=== PATIENT | female | born 1995 | race Caucasian/White ===

== ENCOUNTER 2019-04-26 13:58 | Emergency (ER) | payer MEDICAID, SELFPAY ==
[2019-04-26 14:01] VITALS: BP 132/92; PULSE 104; RESP 18; TEMP 36.4; O2SAT 99; BMI 22.4
--- NOTE | 2019-04-26 14:21 | ED.VIS.GEN ---
History of Present Illness Chief Complaint: Cough Detail of Chief Complaint: Sore throat, cough, wheezing Informant: Patient Onset: Days - 5 days Context: Gradual Onset Current Severity: Mild Maximum Severity: Moderate Narrative: Patient presents with URI symptoms for the past 5 days. She initially developed a sore throat followed by sinus pressure and cough with posttussive emesis. She states she woke last night to wheezing and had to go to her brother's house to use his inhaler. She is bringing up green and brown sputum. Breathing is significantly worse with any exertion. She denies measured fever. She has taken Mucinex today and try drinking peppermint tea to help loosen up her chest congestion. Past Medical History - Allergies and Home Meds Allergies/Adverse Reactions: Allergies latex Allergy (Verified 04/26/19 14:00) Rash Primary Care Physician: NOT,DEFINED [NON-STAFF] - Past Medical History: - - Denies history of asthma. Surgical History: - - x 1, wisdom teeth resection. Smoking Status: Current every day smoker - Family History Maternal Family History: Reports: Hypertension Paternal Family History: Reports: Hypertension, - - Brain aneurysm, age 39 y/o. Review of Systems General: Reports: Sweats. Denies: Chills, Fever Eyes: Denies: Visual changes - bilaterally ENT: Reports: Sore throat. Denies: Bilateral ear pain Cardiovascular: Denies: Chest pain Respiratory: Reports: Dyspnea, Cough, Sputum Gastrointestinal: Reports: Vomiting - Posttussive emesis. Denies: Abdominal pain Genitourinary: Denies: Dysuria Musculoskeletal: Denies: Back pain, Extremity Pain Skin: Denies: Rash Neurological: Denies: Headache Hematologic: Denies: Easy bruising, Easy bleeding Allergy: Denies: Uticaria Physical Exam Vital Signs/Narrative: Vital Signs Temp Pulse Resp BP Pulse Ox 04/26/19 14:01 97.5 F L 104 H 18 132/92 H 99 Inital Vital Signs reviewed: Yes General: Well nourished, Well developed Head: Normocephalic ENT: Moist mucous membranes, - - Posterior pharyngeal drainage. Neck: - - Mild bilateral cervical lymphadenopathy. Cardiovascular: Regular rate, Regular rhythm, No murmurs Respiratory: Wheezing, Diminished, - - Lung sounds slightly diminished with mild expiratory wheeze. Abdomen: Soft, Nontender Extremities: Nontender Skin: Normal color, No rash Neurological: Alert, Oriented x3 Psychological: Normal affect Diagnostic/Tx/Re-eval - Medical Decision Making Patient was given a DuoNeb treatment here along with prednisone and a dose of doxycycline. On repeat evaluation she feels much improved. She has improved air movement throughout. ED Disposition - Plan for ED Patient: Disposition: Home or Assisted Living Diagnosis: Bronchitis Instructions: BRONCHITIS, Antiobiotic Treatment (Adult) Prescriptions: Prednisone [Deltasone] 40 mg PO DAILY #8 tablet Doxycycline 100 mg PO BID #20 capsule Albuterol Inhaler [Ventolin Hfa] 1 - 2 puff INHALATION Q4H PRN PRN #1 inhaler PRN Reason: Wheezing Referrals: Archie Parks Jr. [HONORARY STAFF] - As Needed
[2019-04-26] MEDS: Ipratropium/Albuterol Sulfate 3 ML AMPUL.NEB INHALATION (14:38)
[2019-04-26 14:40] VITALS: RESP 18
[2019-04-26] MEDS: predniSONE 20 MG Tablet 40 MG PO (14:46)
[2019-04-26] MEDS: Doxycycline 100 MG CAPSULE PO (14:46)
== END 2019-04-26 15:43 | disposition home or self-care (01) ==
PROVIDERS: Emergency Provider Emergency Medicine
DX: J40 Bronchitis, not specified as acute or chronic (principal); Z82.49 Family history of ischemic heart disease and other diseases of the circulatory system; Z91.040 Latex allergy status; F17.200 Nicotine dependence, unspecified, uncomplicated
CPT/HCPCS: 94640; 99283

== ENCOUNTER 2019-05-02 17:59 | Emergency (ER) | payer MEDICAID, SELFPAY ==
[2019-05-02 18:00] VITALS: BP 147/93; PULSE 76; RESP 16; TEMP 35.6
[2019-05-02 18:01] VITALS: BP 147/93; PULSE 76; RESP 16; TEMP 35.6; BMI 24.3
[2019-05-02 18:33] LABS: Red Blood Cells-Urine 0 SEEN /hpf (0-5)
[2019-05-02 18:35] LABS: Color, Urine Yellow (Yellow); Glucose, Dipstick Normal (Normal); Ketone-Dipstick Negative (Negative); Leukocyte Esterase-Dipstick 25 /ul (Negative); Nitrite-Dipstick Negative (Negative); Occult Blood-Urine 10 /ul (Negative); Protein-Dipstick Negative (Negative); Specific Gravity, Urine 1.015 (1.002-1.030); Urine Bilirubin Dipstick Negative (Negative); Urine Clarity Sl. Cloudy (Clear); Urine Urobilinogen Normal (Normal)
[2019-05-02 18:35] LABS: Absolute Lymphocyte Count 6.22 X10^3/uL (0.83-4.51); Absolute Neutrophil Count 8.1 X10^3/uL (2.0-7.7); Basophil# 0.07 X10^3/uL; Basophil% 0.4 % (0-1); Eosinophil# 0.33 X10^3/uL; Hematocrit 39.7 % (37-47); Hemoglobin 13.4 g/dL (12.0-15.0); Lymphocyte # 6.22 X10^3/ul (4.0); Lymphocyte % 37.2 % (19-41); Mean Corp Hgb Conc 33.8 g/dL (32-36); Mean Corpuscular Hgb 31.2 pg (27.0-32.0); Mean Corpuscular Volume 92.5 fL (81-99); Mean Platelet Vol. 9.3 fl (6.2-12.0); Monocyte# 1.79 X10^3/uL; Monocyte% 10.7 % (0-10); NRBC Flagged by Analyzer 0 % (0-5); Neutrophil # 8.05 X10^3/uL (2.7-7.7); Neutrophil % 48.3 % (47-70); POSITIVE DIFFERENTIAL YES; Platelet Count 341 K/mm3 (150-450); RBC Distribution Width CV 12.5 % (11.6-14.6); RBC Distribution Width SD 42.1 fl (35.1-43.9); Red Blood Count 4.29 M/mm3 (4.2-5.4); White Blood Count 16.7 K/mm3 (4.4-11.0)
[2019-05-02 18:45] LABS: Differential Indicated SCAN CRITERIA MET
[2019-05-02 18:48] LABS: Anion Gap 5 (5-15); BUN 11 mg/dL (7-18); BUN/Creat Ratio 15.2 RATIO (10-20); Calcium,Total 9.1 mg/dL (8.5-10.1); Chloride 104 mmol/L (98-107); Creatinine, Serum 0.73 mg/dL (0.55-1.02); EST Glomerular Filtration Rate 105 mL/min (>60); Est Glom Filt Rate - Afr Amer 128 mL/min (>60); Glucose 80 mg/dL (74-106); Potassium 3.6 mmol/L (3.5-5.1); Sodium Level 141 mmol/L (136-145)
[2019-05-02 18:49] LABS: Internal QC Validated? YES +Cl - CLEAR BKGD; Pregnancy, Serum, hCG Quali. NEGATIVE Negative
[2019-05-02 18:59] LABS: Bacteria 2+ /hpf (None Seen); Squamous Epithelial Cells - UA 5-10 SEEN /hpf (5-10); White Blood Cells 0-5 SEEN /hpf (0-5)
[2019-05-02 19:00] LABS: Amorphous Sediment 1+; Mucous, Urine 1+ /hpf (<or=2+)
--- NOTE | 2019-05-02 19:06 | ED.DCSUM_ITS ---
- ER Visit Summary Date of Service: 05/02/19 Chief Complaint: Right upper quadrant abdominal pain History of Present Illness: The patient is a 24 F who presents with right upper quadrant abdominal pain that began yesterday. Patient describes the pain as sharp and stabbing. Patient states the pain has been constant. Patient states the pain is worse with ambulation. Patient admits to nausea but denies any vomiting. Patient denies any diarrhea, melena, or hematochezia. Patient denies any dysuria or hematuria. Patient states her last menstrual period was 04/13/2019. Patient states the pain does radiate into her back. Patient states she does have pain between her shoulder blades. 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 Physical Examination: Vital signs are stable. Patient is afebrile. Patient is in no acute distress. Oral mucosa is pink and moist. Neck is supple. Trachea is midline. There is no JVD. Heart was regular rate and rhythm. Lungs are clear and equal bilaterally. Abdomen is soft. Bowel sounds are normal. There is right upper quadrant tenderness. There is a positive Ly sign. There is no rebound or guarding noted. Cranial nerves II through XII are intact. There are no focal motor or sensory deficits noted. Test Results: CBC showed leukocytosis of 16.7. Comprehensive metabolic profile was essentially within normal limits. Urinalysis does not show any evidence of urinary tract infection. CT scan of the abdomen and pelvis was obtained. There is some gallbladder wall edema as well as edema around the pancreas. There are no gallstones noted. There is questionable ductal dilatation of the cystic duct. Emergency Department Course and Treatment: Patient was given IV fluids, Zofran, and Toradol. Patient is feeling better on reevaluation. Case was discussed with Dr. Mitchell. Patient will be able to follow-up as an outpatient. Patient understood and was agreeable with the plan. All questions were answered. Disposition: Discharge home Impression: Right upper quadrant abdominal pain This note was generated with [employer] dictation software. It may contain incorrect words, spelling, and punctuation that were not noted in review of the chart prior to signing ED Disposition - Plan for ED Patient: Disposition: Home or Assisted Living Diagnosis: Right upper quadrant abdominal pain Instructions: ABDOMINAL PAIN, Unknown Cause, (Female) Referrals: Care Physician,No Primary [Primary Care Provider] - Chidi Mitchell MD [STAFF PHYSICIAN] - 3-5 Days
[2019-05-02 19:13] LABS: Differential Comment SCANNED
[2019-05-02 19:20] LABS: ALB/GLOB Ratio 1.1 RATIO (0.9-2.4); AST(SGOT) 39 U/L (15-37); Alanine Aminotransfer ALT/SGPT 57 U/L (13-56); Albumin, Serum 3.5 g/dL (3.2-5.0); Alkaline Phosphatase 70 U/L (45-117); Anion Gap 7 (5-15); BUN 11 mg/dL (7-18); BUN/Creat Ratio 14.5 RATIO (10-20); Chloride 104 mmol/L (98-107); Creatinine, Serum 0.76 mg/dL (0.55-1.02); EST Glomerular Filtration Rate 100 mL/min (>60); Est Glom Filt Rate - Afr Amer 121 mL/min (>60); Estimated Creatinine Clearance 107.77 ml/min; Globulin 3.2 g/dL (2.2-4.2); Glucose 79 mg/dL (74-106); Lipase 266 U/L (73-393); Potassium 3.6 mmol/L (3.5-5.1); Protein, Total 6.7 g/dL (6.4-8.2); Sodium Level 142 mmol/L (136-145)
--- NOTE | 2019-05-02 19:36 | ED.RN ---
while starting fluids via IV, pt started screaming and moaning saying, get it out it hurts. I used to do dope and i know this isn't right. PT requesting oral meds. aware.
--- NOTE | 2019-05-02 19:48 | CT_ITS ---
STUDY: CT ABDOMEN AND PELVIS WITHOUT CONTRAST REASON FOR EXAM: Female, 24 years old. Right upper quadrant pain nausea elevated white cells RADIATION DOSAGE (If Supplied By Facility): CTDIvol = ( 6.28 ) mGy, DLP = ( 298.00 ) mGycm TECHNIQUE: Transaxial images were obtained from the dome of the diaphragm to the symphysis pubis without oral contrast, and without intravenous contrast. Sagittal and coronal images were reconstructed. Individualized dose optimization techniques were used for this CT. COMPARISON: None. FINDINGS: Examination is moderately technically limited due to suboptimal technique and lack of IV contrast. Diagnostic information is available. The visualized lung bases are unremarkable. The visualized portions of the heart are within normal limits. The liver is intact. There is possibly periportal edema with widening of the portal triads. There is severe gallbladder wall edema. Detection of biliary dilation is not possible. There is edema surrounding the root of the mesentery and pancreas and upper retroperitoneum. Distal tail and body of the pancreas are normal. There is questionable ductal dilation in the pancreatic head, versus cystic duct. Normal bilateral adrenal glands. Normal right kidney. Normal left kidney. Normal visualized stomach. Normal small intestine. Normal colon. The appendix is visualized and appears normal. Normal abdominal aorta. Normal inferior vena cava. Normal retroperitoneum. Normal urinary bladder. Normal abdominal wall. Normal osseous structures. CT/Abdomen/Pelvis without Cont IMPRESSION: 1. Limited evaluation. 2. Presumed cholecystitis. 3. Periportal edema, peripancreatic edema, possibly pancreatitis versus duodenitis versus cholangitis. Electronically Signed: Karen Asif, at 20:10 EST Tel , Service support ,
[2019-05-02] MEDS: Naproxen 250 MG Tablet 500 MG PO (20:01)
[2019-05-02] MEDS: Ondansetron ODT 4 MG Tablet PO (20:01)
[2019-05-02 20:04] VITALS: BP 116/90; PULSE 60; RESP 16; O2SAT 98
[2019-05-02 22:16] VITALS: BP 126/84; PULSE 69; RESP 14; O2SAT 98
[2019-05-03 14:14] LABS: Pathologist Review Reviewed
== END 2019-05-02 22:17 | disposition home or self-care (01) ==
PROVIDERS: Emergency Provider Emergency Medicine
DX: R10.11 Right upper quadrant pain (principal); M54.9 Dorsalgia, unspecified; R11.0 Nausea; R05 Cough; F17.210 Nicotine dependence, cigarettes, uncomplicated; Z86.19 Personal history of other infectious and parasitic diseases
CPT/HCPCS: 74176; 80048; 80053; 81001; 83690; 84703; 85025; 96361; 96374; 96375; 99284; J7030; A4216; J2405

== ENCOUNTER 2020-06-04 20:50 | Emergency (ER) | payer MEDICAID, SELFPAY ==
[2020-06-04 20:51] VITALS: BP 146/84; PULSE 77; RESP 18; TEMP 36.4; O2SAT 95; BMI 22.4
[2020-06-04] MEDS: Albuterol 2.5 MG/3 ML VIAL.NEB. INHALATION (21:20)
[2020-06-04 21:22] VITALS: PULSE 73; RESP 16
--- NOTE | 2020-06-04 21:35 | RAD_ITS ---
STUDY: X-RAY CHEST REASON FOR EXAM: Female, 25 years old. SOB and amp; COUGH. REPORTS ALLERGY TO CATS. WENT TO VISIT HER MOM WHO HAS CATS IN HER HOME. PT REPORTS AFTERWARDS SHE FELT SOB WITH WHEEZING. TECHNIQUE: Single AP portable view of the chest. COMPARISON: 10/02/2016 FINDINGS: Left perihilar airspace process is new since the prior study. There is no demonstrated pleural abnormality. Normal size heart. Normal mediastinum and marguerite. Normal visualized pulmonary arteries. Normal visualized aortic arch and descending thoracic aorta. Normal visualized thoracic spine. Normal visualized ribs, clavicles, and shoulders. There is no demonstrated abnormality of the visualized soft tissue structures of the upper abdomen. RAD/Chest 1 View (Portable) IMPRESSION: Left perihilar bronchopneumonia. Electronically Signed: Leonid Lyn MD (Brooks) at 21:52 EST , Service support ,
--- NOTE | 2020-06-04 22:00 | ED.VISSUMM ---
- ER Visit Summary Date of Service: 06/04/20 Chief Complaint: Shortness of breath History of Present Illness: The patient is a 25 F with no primary care physician. She reports that she has had a cough for the past week is productive of brown sputum without blood. States that she went to her mom's house tonight and she is allergic to cats. When she got there she began coughing hard and became short of breath. She denies any fever or chills. 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 She does wear a mask. Physical Examination: Vitals: Stable. Afebrile. General: Well-nourished and well-developed. Head: Normocephalic atraumatic. Neck: Supple, no lymphadenopathy. No JVD. Nontender. Cardiovascular: Regular rate and rhythm. No murmurs. Respiratory: No respiratory distress. Mild wheezing bilaterally with good air movement. Abdominal: Soft, nontender, nondistended, normal bowel sounds. No guarding, rebound, or peritoneal signs. Back: Nontender. Extremities: Nontender, no edema. Skin: Normal color, no rash. Neurologic: Alert and oriented ?3. Cranial nerves II through XII are intact. Normal strength and sensation. Psych: Normal affect. Test Results: COVID-19 rapid antigen is negative. Clinical Impression(s) from Imaging Studies Chest X-Ray 06/04/20 21:35 IMPRESSION: Left perihilar bronchopneumonia. Electronically Signed: Leonid Lyn MD ([place]oks) at 21:52 EST , Service support , Emergency Department Course and Treatment: Patient was treated albuterol Atrovent aerosols. She was given doxycycline and prednisone p.o. Treatment Plan: Patient will be discharged instructions [facility] if not improving. Return to the emergency department for any worsening symptoms. Disposition: To home in improved and stable condition. Impression: 1. Pneumonia. This note was generated with [employer] software. It may contain incorrect words, spelling, and punctuation that were not noted in review of the chart prior to signing ED Disposition - Plan for ED Patient: Disposition: Home or Assisted Living Instructions: ED Pneumonia (Adult) Prescriptions: Prednisone [Deltasone] 40 mg PO DAILY #10 tab Prescription Printed Doxycycline 100 mg PO BID #14 cap Prescription Printed Albuterol Inhaler [Ventolin Hfa] 1 - 2 puff INHALATION Q4H PRN PRN #1 inhaler PRN Reason: Wheezing Prescription Printed Referrals: Claire Kam [NON-STAFF] - 1 Week if not improving
[2020-06-04] MEDS: Doxycycline 100 MG CAPSULE PO (22:08)
[2020-06-04] MEDS: predniSONE 20 MG Tablet 40 MG PO (22:08)
[2020-06-04 22:15] VITALS: RESP 16
== END 2020-06-04 22:15 | disposition home or self-care (01) ==
LOC: ED 21:54
PROVIDERS: Emergency Provider Emergency Medicine
DX: J18.0 Bronchopneumonia, unspecified organism (principal)
CPT/HCPCS: 71045; 87426; 94640; 99283

== ENCOUNTER 2021-03-06 09:35 | Inpatient (IN) | payer MEDICAID, SELFPAY ==
[2021-03-06] VITALS (22 sets, daily range): BP systolic 107–131; BP diastolic 37–69; PULSE 44–81; RESP 16–20; TEMP 36.1–36.7; O2SAT 96–100; BMI 26.3
[2021-03-06] MEDS: Lactated Ringers 1,000 ML 999 ML IV (10:20)
[2021-03-06] MEDS: Acetaminophen 500 MG Tablet 1000 MG PO ×3 (10:38→23:23)
[2021-03-06 10:40] LABS: Absolute Lymphocyte Count 1.83 X10^3/uL (0.83-4.51); Absolute Neutrophil Count 7.3 X10^3/uL (2.0-7.7); Basophil# 0.02 X10^3/uL; Basophil% 0.2 % (0-1); Eosinophil# 0.13 X10^3/uL; Eosinophils% 1.3 % (0-5); Hemoglobin 11.5 g/dL (12.0-15.0); Lymphocyte # 1.83 X10^3/ul (0.83-4.51); Lymphocyte % 17.7 % (19-41); Mean Corp Hgb Conc 33.8 g/dL (32-36); Mean Corpuscular Hgb 29.5 pg (27.0-32.0); Mean Corpuscular Volume 87.2 fL (81-99); Mean Platelet Vol. 10.7 fl (6.2-12.0); Monocyte# 1.04 X10^3/uL; Monocyte% 10.1 % (0-10); NRBC Flagged by Analyzer 0 % (0-5); Neutrophil # 7.27 X10^3/uL (2.7-7.7); Neutrophil % 70.5 % (47-70); Platelet Count 277 K/mm3 (150-450); RBC Distribution Width CV 13.5 % (11.6-14.6); RBC Distribution Width SD 42.4 fl (35.1-43.9); White Blood Count 10.3 K/mm3 (4.4-11.0)
[2021-03-06 10:59] LABS: Amphetamine Urine VISTA NEGATIVE (<1000 ng/mL); Barbiturate Urine VISTA NEGATIVE (< 200 ng/mL); Benzodiazepine Urine VISTA NEGATIVE (< 200 ng/mL); Cocaine Urine VISTA NEGATIVE (< 300 ng/mL); Ecstacy Urine VISTA NEGATIVE (< 500 ng/mL); Methadone Urine VISTA NEGATIVE (< 300 ng/mL); PCP Urine VISTA NEGATIVE (< 25 ng/mL); THC Urine VISTA POSITIVE (< 50 ng/mL); Vista UDS pH Range 6
[2021-03-06] MEDS: Lactated Ringers 1,000 ML 150 ML IV (11:21)
[2021-03-06 11:44] LABS: AST(SGOT) 50 U/L (15-37); Alanine Aminotransfer ALT/SGPT 51 U/L (13-56); Albumin, Serum 2.5 g/dL (3.2-5.0); Alkaline Phosphatase 231 U/L (45-117); Bilirubin, Direct 0.14 mg/dL (0.00-0.30); Globulin 4.2 g/dL (2.2-4.2); Protein, Total 6.7 g/dL (6.4-8.2)
[2021-03-06] MEDS: Sodium Citrate/Citric Acid 30 ML UDC PO (11:45)
[2021-03-06] MEDS: Cefazolin 2 GM in 0.9% Normal Saline 100 ML IV (11:50)
--- NOTE | 2021-03-06 11:59 | PCM.HP.OB ---
HPI - General General Date of Admission: 03/06/21 HPI Narrative KARINA ARANDA, is a 26 F who presents for repeat . Maternal Data Information Final AROLDO: [birth year] Gestational age: 39&2 PFSH PFSH Medical History Depression Hepatitis Psychiatric disorder Home Medications albuterol sulfate 1 - 2 puff INHALATION Q4H PRN PRN #1 inhaler 06/04/20 [Rx Last Taken 6 Months Ago ~09/03/20] PNV no.[id number] [ Gummies] tab PO DAILY 03/06/21 [History Last Taken 03/05/21 20:00] buprenorphine HCl [Subutex] 8 mg SUBLINGUAL DAILY 03/06/21 [History Last Taken 03/06/21 08:30] docusate sodium [Colace] 50 mg PO DAILY 03/06/21 [History Last Taken 03/06/21 10:27] doxylamine succinate [Unisom (doxylamine)] 25 mg PO QHS PRN 03/06/21 [History Last Taken 03/05/21 20:00] ondansetron HCl [Zofran] 4 mg PO Q6H PRN 03/06/21 [History Last Taken 03/06/21 08:00] pyridoxine (vitamin B6) [Vitamin B-6] 25 mg PO DAILY 03/06/21 [History Last Taken 03/05/21 20:00] Allergy/AdvReac Type Severity Reaction Status Date / Time latex Allergy Rash Verified 03/06/21 10:17 Surgical History (Updated 03/06/21 @ 12:[address] Jes Varela MD) History of gynecologic surgery Previous section Social History Smoking Status: Former smoker History Elective abortions Hx Para 1 Spontaneous abortions Hx # Term Pregnancies Ectopic pregnancies Hx # Pregnancies Multiple births # of living children Vital Signs Vital Signs Vital Signs: 03/06/21 11:00 03/06/21 11:06 Temperature 96.9 F L 96.9 F L Temperature Source Temporal Temporal Pulse Rate 81 81 Respiratory Rate 20 H Blood Pressure 126/52 H 126/52 H Blood Pressure Mean 76 BP Systolic 126 BP Diastolic 52 Blood Pressure Source Monitor Blood Pressure Position Semi-Fowlers Blood Pressure Location Right Arm Pulse Ox 98 98 Oxygen Delivery Method Room Air Weight Weight: 170 lb 6.677 oz Body Mass Index (BMI) 26.3 Physical Exam Const alert and oriented x3 Chest inspection of chest normal Resp normal respiratory effort GI soft to palpation, non-tender and non-distended Inspection: gravid external exam normal Labs Labs Labs: Blood Type A POSITIVE Antibody Screen NEGATIVE Hct 34.0 % (37-47) L Hgb 11.5 g/dL (12.0-15.0) L Obstetrics US Rhogam given: No See [facility] H&P Assessment & Plan (1) Previous delivery, antepartum: COMMENT: @ 39&2 weeks PLAN: Admit to L&D Plan for repeat - informed consent signed COVID negative Maternal subutex use - plan for PP social work consult Routine care
[2021-03-06 12:28] LABS: BUP Internal Control LINE = VALID (VALID); Buprenorphine Drug Screen Positive (<10 ng/mL)
--- NOTE | 2021-03-06 13:02 | EX.PCM.OBRPT ---
Maternal Data Information Final AROLDO: [birth year]21 Gestational age: 39&2 Details Operative Information Date of Procedure: 03/06/21 Pre-Operative Diagnosis: (1) Prior section (2) Maternal subutex use Post-Operative Diagnosis: Same Indications for : Repeat Elective Indications Narrative: The patient was taken to the operating room where spinal anesthesia was placed & found to be adequate. She was prepped and draped in the dorsal supine position with a leftward tilt. A Pfannenstiel skin incision was made approximately 2 cm above the symphysis pubis and carried through to the underlying fascia with the scalpel. The fascia was incised incised in the midline and extended laterally with the [place] scissors. The rectus muscles were in the midline and the peritoneum was entered carefully and bluntly. The peritoneal incision was stretched and the bladder blade was inserted. Vesicouterine peritoneum was tented up, incised & then bladder flap created gently. The uterine incision was made in a low transverse fashion with the scalpel and extended superiorly and inferiorly with blunt dissection. The infant's head was brought to the incision in the flexed position and delivered without difficulty. The head was gently guided to allow delivery of the anterior and posterior shoulders. The body then delivered with fundal pressure in the standard fashion. The 3VC cord was clamped and cut in delayed fashion. The infant was handed off to the waiting pediatric physical therapist. The placenta was delivered with fundal massage and gentle traction in the standard fashion. The uterus was exteriorized and cleared of clots and debris. The uterine incision was closed with #1 Vicryl suture in a running locked fashion. Monocryl suture was used in an imbricating fashion. The incision was examined and was found to be hemostatic. The uterus was returned to the abdominal cavity. After irrigating Richa was placed over the uterine incision as some areas were denuded (but hemostatic). The peritoneum was unable to be closed as their was some adhesions of the omentum to the peritoneum. The rectus muscle was examined and any bleeding was Bovie cauterized. The fascia was closed with PDS suture in a running standard fashion. The subcutaneous tissue was examining and any bleeding was Bovie cauterized. The subcutaneous tissue was reapproximated with interrupted sutures. The skin was closed in a subcuticular fashion by the MUMPS DEVELOPER while I was present in the labor & delivery unit. The remainder of the procedure was performed by me with assistance. All sponge, lap, and needle counts were correct. The patient was taken to her room for recovery in a stable condition. Classification: Scheduled Procedure Type: low transverse recovery specialist #1: Lauren Spaulding Type of Anesthesia: Spinal Antibiotic Given: Ancef 2 grams IV x1 Drain: Mendoza to straight drain Estimated Blood Loss: 750ml Fluids Replaced: 1100ml Procedure Start Time: 12:15 Procedure Stop Time: 12:50 Findings Description of Procedure: Normal maternal uterus and ovaries Presentation: Positive for Vertex Amniotic Membrane Rupture Type: Artificial Amniotic Fluid Description: Clear Placental Delivery Description: Expressed Placenta Disposition: [facility] Cord Vessel Description: 3 Vessels Cord Entanglement: None A Gender: Male (Joesph - weight = 8-3) (1 minute): 9 (5 minute): 9 Delayed Cord Clamping: Yes Complications Complications: None
[2021-03-06] MEDS: Oxytocin 30 units/NS 500 ml 30 UNITS/500 ML IV.SOLN 167 UNITS IV (13:10)
[2021-03-06] MEDS: Ketorolac 30 MG/ML Syringe IV ×2 (13:20→19:40)
[2021-03-06] MEDS: Ondansetron 4 MG/2 ML Vial IV (14:14)
[2021-03-06] MEDS: 0.9% Saline Lock 10 ML Syringe IV ×3 (14:14→19:40)
[2021-03-06] MEDS: Lactated Ringers 1,000 ML 100 ML IV (17:31)
[2021-03-07] VITALS (9 sets, daily range): BP systolic 94–121; BP diastolic 54–83; PULSE 55–75; RESP 16–18; TEMP 36–36.9; O2SAT 96–100
[2021-03-07] MEDS: Ketorolac 30 MG/ML Syringe IV ×2 (01:50→08:06)
[2021-03-07] MEDS: 0.9% Saline Lock 10 ML Syringe IV ×2 (01:51→08:09)
[2021-03-07] MEDS: Enoxaparin 40 MG/0.4 ML Syringe SC (02:13)
[2021-03-07] MEDS: Acetaminophen 500 MG Tablet 1000 MG PO ×3 (05:45→18:21)
[2021-03-07 05:57] LABS: Hematocrit 31.4 % (37-47); Hemoglobin 10.4 g/dL (12.0-15.0); Mean Corp Hgb Conc 33.1 g/dL (32-36); Mean Corpuscular Hgb 29.5 pg (27.0-32.0); Mean Corpuscular Volume 89.2 fL (81-99); Mean Platelet Vol. 10.8 fl (6.2-12.0); Platelet Count 245 K/mm3 (150-450); RBC Distribution Width CV 13.4 % (11.6-14.6); RBC Distribution Width SD 43.8 fl (35.1-43.9); Red Blood Count 3.52 M/mm3 (4.2-5.4); White Blood Count 12.8 K/mm3 (4.4-11.0)
--- NOTE | 2021-03-07 08:47 | PCM.PN.OB ---
Subjective Subjective Pain well controlled. Average lochia. Ambulating and urinating without difficulty. Tolerating regular diet. Objective Data Objective Data Vital Signs: Vital Signs Temp Pulse Resp BP Pulse Ox 98.4 F 68 16 101/60 98 03/07/21 08:21 03/07/21 08:21 03/07/21 08:21 03/07/21 08:21 03/07/21 08:21 Oxygen Delivery Method Room Air Weight: 77.3 kg Body Mass Index (BMI) 26.3 Intake & Output: Intake and Output for Last 24 Hours 03/05/21 03/06/21 03/07/21 23:59 23:59 23:59 Intake Total 3060 / 3060 Output Total 1250 / 1250 Balance 1810 / 1810 Lab / Micro Data Result Diagrams: 03/07/21 05:50 Labs: Laboratory Results - last 24 hr 03/06/21 10:20: WBC 10.3, RBC 3.90 L, Hgb 11.5 L, Hct 34.0 L, MCV 87.2, MCH 29.5, MCHC 33.8, RDW Std Deviation 42.4, RDW Coeff of Julio 13.5, Plt Count 277, MPV 10.7, Immature Gran % (Auto) 0.200, Neut % (Auto) 70.5 H, Lymph % (Auto) 17.7 L, [place] % (Auto) 10.1 H, Eos % (Auto) 1.3, Baso % (Auto) 0.2, Absolute Neuts (auto) 7.3, Absolute Lymphs (auto) 1.83, Nucleated RBC % 0 03/06/21 10:20: Blood Type A POSITIVE, Antibody Screen NEGATIVE 03/06/21 10:20: Total Bilirubin 0.40, Direct Bilirubin 0.14, AST 50 H, ALT 51, Alkaline Phosphatase 231 H, Total Protein 6.7, Albumin 2.5 L, Globulin 4.2 03/06/21 10:20: Urine Opiates Screen NEGATIVE, Urine Methadone Screen NEGATIVE, Ur Barbiturates Screen NEGATIVE, Ur Phencyclidine Scrn NEGATIVE, Ur Amphetamines Screen NEGATIVE, U Methamphetamin-MDMA NEGATIVE, U Benzodiazepines Scrn NEGATIVE, Urine Cocaine Screen NEGATIVE, U Cannabinoids Screen POSITIVE H, Ur Drug Screen Comment 03/06/21 10:30: Ur Buprenorphine Scrn Positive H, Ur Drug Screen Comment 03/07/21 05:50: WBC 12.8 H, RBC 3.52 L, Hgb 10.4 L, Hct 31.4 L, MCV 89.2, MCH 29.5, MCHC 33.1, RDW Std Deviation 43.8, RDW Coeff of Julio 13.4, Plt Count 245, MPV 10.8 Physical Exam Const alert General Appearance: cooperative GI GI Narrative: soft, moderate distention, fundus firm, appropriately tender. Abdominal bandage clean dry and intact Assessment & Plan (1) delivery delivered: PLAN: Postoperative day #1 status post repeat section. Patient and are doing well. Patient is working on breast-feeding. Mild postoperative blood loss anemia is appropriate for blood loss during surgery. Continue routine postop care. Likely discharge home tomorrow.
[2021-03-07] MEDS: Senna/Docusate Sodium 1 Tablet PO (10:07)
[2021-03-07] MEDS: BUPRENORPHINE HCL 8 MG TAB.SUBL SL (10:08)
[2021-03-07] MEDS: Ibuprofen 600 MG Tablet PO ×2 (13:43→20:18)
[2021-03-08] MEDS: Acetaminophen 500 MG Tablet 1000 MG PO ×4 (00:16→18:23)
[2021-03-08 02:02] VITALS: BP 123/43; PULSE 62; RESP 18; TEMP 36.1
[2021-03-08] MEDS: Ibuprofen 600 MG Tablet PO ×4 (02:05→20:21)
[2021-03-08] MEDS: Buprenorphine HCl 2 MG TAB.SUBL SL ×2 (06:04→15:58)
[2021-03-08 08:00] VITALS: BP 124/77; PULSE 60; RESP 16; TEMP 36.9
--- NOTE | 2021-03-08 09:01 | PCM.PN.OB ---
Subjective Subjective Pain much better controlled with buprenorphine for breakthrough pain. Tolerating regular diet. Complaining of some mid back pain. Objective Data Objective Data Her back was inspected and palpated. No erythema, lumps, or point tenderness. Vital Signs: Vital Signs Temp Pulse Resp BP Pulse Ox 98.5 F 60 16 124/77 H 96 03/08/21 08:00 03/08/21 08:00 03/08/21 08:00 03/08/21 08:00 03/07/21 16:43 Oxygen Delivery Method Room Air Weight: 77.3 kg Body Mass Index (BMI) 26.3 Intake & Output: Intake and Output for Last 24 Hours 03/06/21 03/07/21 03/08/21 23:59 23:59 23:59 Intake Total 3060 / 3060 Output Total 1250 / 1250 Balance 1810 / 1810 Lab / Micro Data Result Diagrams: 03/07/21 05:50 Physical Exam Const alert General Appearance: cooperative GI GI Narrative: soft, mildly distended, less than yesterday, fundus firm, appropriately tender. Abdominal bandage clean dry and intact Assessment & Plan (1) delivery delivered: PLAN: Postoperative day #2 status post repeat section. Patient is doing well. Using buprenorphine maintenance dose with buprenorphine 2 mg every 8 hours as needed breakthrough pain. Pain is improved with this. is breast-feeding. Had some abstinence syndrome symptoms last night. Patient will not be discharged today as will not be discharged. Continue to monitor for now. Routine care. Patient understands and agrees with plan.
[2021-03-08] MEDS: BUPRENORPHINE HCL 8 MG TAB.SUBL SL (09:56)
[2021-03-08] MEDS: Senna/Docusate Sodium 1 Tablet PO (09:56)
[2021-03-08] MEDS: Enoxaparin 40 MG/0.4 ML Syringe SC (09:56)
[2021-03-08 13:17] VITALS: BP 115/66; PULSE 57; RESP 16; TEMP 36.2
[2021-03-08 20:05] VITALS: BP 129/91; PULSE 57; RESP 18; TEMP 36.1
[2021-03-09] MEDS: Acetaminophen 500 MG Tablet 1000 MG PO ×4 (00:14→19:27)
[2021-03-09] MEDS: Ibuprofen 600 MG Tablet PO ×4 (02:52→20:20)
[2021-03-09 02:53] VITALS: BP 127/57; PULSE 59; RESP 18
[2021-03-09] MEDS: Enoxaparin 40 MG/0.4 ML Syringe SC (07:45)
[2021-03-09] MEDS: Senna/Docusate Sodium 1 Tablet PO (07:46)
[2021-03-09 07:50] VITALS: BP 109/68; PULSE 58; RESP 14; TEMP 36; O2SAT 97
[2021-03-09] MEDS: BUPRENORPHINE HCL 8 MG TAB.SUBL SL (10:29)
[2021-03-09 13:58] VITALS: BP 132/79; PULSE 62; RESP 14; TEMP 36.3; O2SAT 97
--- NOTE | 2021-03-09 17:31 | PCM.PN.OB ---
Subjective Subjective Pt doing well. Pain well controlled. Ambulating voiding without difficulty. Tolerating regular diet without nausea or vomiting. Denies chest pain, shortness of breath, leg pain. Lochia normal. Denies chest pain, shortness of breath, leg pain. Objective Data Objective Data Vital Signs: Vital Signs Temp Pulse Resp BP Pulse Ox 97.4 F L 62 14 132/79 H 97 03/09/21 13:58 03/09/21 13:58 03/09/21 13:58 03/09/21 13:58 03/09/21 13:58 Oxygen Delivery Method Room Air Weight: 170 lb 6.677 oz Body Mass Index (BMI) 26.3 Lab / Micro Data Result Diagrams: 03/07/21 05:50 Physical Exam Const alert and no apparent distress General Appearance: comfortable HEENT normocephalic GI soft to palpation, non-tender and non-distended GI Narrative: dressing c/d/i Extremity no calf tenderness Assessment & Plan (1) delivery delivered: PLAN: Routine post op care. VSS. Pain well controlled. SW to see. Dispo: Discharge tomorrow. (2) Heroin abuse: (3) Tobacco use: (4) Depression: QUALIFIERS: Depression Type: unspecified Qualified Code(s): F32.9 - Major depressive disorder, single episode, unspecified (5) Cocaine abuse: (6) Methamphetamine abuse:
[2021-03-09] MEDS: Buprenorphine HCl 2 MG TAB.SUBL SL (19:54)
[2021-03-09 20:18] VITALS: BP 138/81; PULSE 65; RESP 18; TEMP 36.6
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
[2021-03-10] MEDS: Acetaminophen 500 MG Tablet 1000 MG PO ×3 (00:18→13:21)
[2021-03-10] MEDS: Bisacodyl 10 MG Suppository RC (00:34)
[2021-03-10 02:21] VITALS: BP 119/69; PULSE 55; RESP 16; TEMP 36.7
[2021-03-10] MEDS: Ibuprofen 600 MG Tablet PO ×3 (02:23→15:10)
[2021-03-10 08:06] VITALS: BP 118/53; PULSE 62; RESP 16; TEMP 36.9
[2021-03-10] MEDS: Enoxaparin 40 MG/0.4 ML Syringe SC (10:07)
[2021-03-10] MEDS: Senna/Docusate Sodium 1 Tablet PO (10:07)
[2021-03-10] MEDS: BUPRENORPHINE HCL 8 MG TAB.SUBL SL (10:07)
--- NOTE | 2021-03-10 11:22 | PCM.PN.OB ---
Subjective Subjective Patient doing well. Reports no bowel movement and discomfort from this. She is passing gas. She is tolerating regular diet without nausea or vomiting. Ambulating voiding without difficulty. She denies chest pain, shortness of breath, leg pain. Her pain is well controlled. Objective Data Objective Data Vital Signs: Vital Signs Temp Pulse Resp BP Pulse Ox 98.4 F 62 16 118/53 L 97 03/10/21 08:06 03/10/21 08:06 03/10/21 08:06 03/10/21 08:06 03/09/21 13:58 Oxygen Delivery Method Room Air Weight: 170 lb 6.677 oz Body Mass Index (BMI) 26.3 Lab / Micro Data Result Diagrams: 03/07/21 05:50 Physical Exam Const alert General Appearance: comfortable GI soft to palpation GI Narrative: softly distended, ATTP Extremity no calf tenderness Assessment & Plan (1) delivery delivered: PLAN: Meeting milestones to go home. Discharge instructions reviewed. To hotel status today. (2) Heroin abuse: (3) Tobacco use: (4) Depression: QUALIFIERS: Depression Type: unspecified Qualified Code(s): F32.9 - Major depressive disorder, single episode, unspecified (5) Cocaine abuse: (6) Methamphetamine abuse:
--- NOTE | 2021-03-10 11:29 | PCM.DC ---
Discharge Instructions Diet Discharge Diet: No restrictions Activity Discharge Activity: May Shower May resume sexual activity in: 6 weeks Ice area for (Minutes): 15 Weight Bearing Status: Weight bearing as tolerated Lifting Restrictions: nothing heavier than baby Dressing / Incision Call your doctor if your incision/area has: Sudden Increased Bleeding, Increased Pain/ Swelling, Increased Redness, Foul Smelling Discharge and Swelling at the incision site Call your doctor if you observe: Fever of 101 or Higher, Change in Color, Inability to urinate, Inability to have a bowel movement, Using more than 1 pad per hour, Shortness of breath, Dizziness, Fainting spells, Swelling in the ankles, Chest pain, Increased palpitations (irregular heartbeat), Calf discomfort and Uncontrolled pain Suture Line Care: Avoid Pulling/Pushing and Avoid Pinching/Bending Remove Dressing in: 1 week Cleanse incision/area with: Soap & Water Follow Up Care When: 1 week for incision check and 6 weeks for visit Test Results: Test results from this visit will be discussed in further detail at your follow-up appointment, if applicable. Discharge Plan Admission Admit Date/Time: 03/06/21 09:35 Primary Reason for Your Visit: section Attending Provider: Jes Varela Primary Care Provider: Janeth Physician,No Primary Discharge Orders/Prescriptions Prescriptions: New acetaminophen [Tylenol Extra Strength] 500 mg tablet 500 mg PO Q6H PRN (Reason: pain) Qty: 30 RF: 0 docusate sodium [Colace] 100 mg capsule 100 mg PO BID Qty: 30 RF: 0 Continued albuterol sulfate 1 INHALER inhaler 1 - 2 puff INHALATION Q4H PRN PRN (Reason: Wheezing) Qty: 1 RF: 0 docusate sodium 50 mg Capsule 50 mg PO DAILY RF: 0 buprenorphine HCl 8 mg Tablet, Sublingual 8 mg SUBLINGUAL DAILY RF: 0 Gummies 400 mcg-35 mg- 25 mg-5 mg Tablet,Chewable PO DAILY RF: 0 Discontinued pyridoxine (vitamin B6) [Vitamin B-6] 25 mg Tablet 25 mg PO DAILY RF: 0 ondansetron HCl [Zofran] 4 mg Tablet 4 mg PO Q6H PRN (Reason: Nausea) RF: 0 Unisom (doxylamine) 25 mg Tablet 25 mg PO QHS PRN (Reason: Nausea) RF: 0 Referrals / Follow Up: Care Physician,No Primary [Primary Care Provider] - Disposition Disposition (needs filled in before D/C Order can be placed): Home, Self Care
[2021-03-10] MEDS: Buprenorphine HCl 2 MG TAB.SUBL SL (14:35)
[2021-03-10 14:36] VITALS: BP 113/68; PULSE 70; RESP 16; TEMP 36.1; O2SAT 97
--- NOTE | 2021-03-12 16:13 | CASEMGMT ---
Social Work Labor and Delivery Unit Called [facility] at [phone] and spoke with Monisha in the screening department. Referral due to exposure to substances in utero, both illicit and prescribed. Other risk factors reported as well including maternal and paternal mental health history. Brief maternal and histories report reported. Per conversation with Monisha, [facility] would appreciate if this headline writer could verify MOB'S adherence to outpatient substance use treatment. MOB had signed a release of information to [facility] treatment [place] prior to discharge. This headline writer contacted [facility]. No release of information on file. Obtained fax numbers fax release of information this headline writer had on file to [phone] (which is to the [place] office) and also to get medical records fax number at [phone]. Left this headline writer's number to call back to verify adherence to treatment. Spoke with Rosibel in the screening department at [facility], . Updated to the MOB having a positive drug screen at time of delivery for marijuana, and uncertain whether this would have any impact on the 3-year-old placed in the home by [facility]. Rosibel reports will look into the situation and update assigned worker. No response from [facility] today. Called Monisha at [facility] to update. Per Monisha setting agency decided to send somebody out today to check on the family. No other manager social requested or indicated, other than monitoring for meconium drug screen results. -ISIS Watkins, SAFETY ASSOCIATE *This note was generated with [employer] software. It may contain incorrect words, spelling, and punctuation that were not noted in review of the chart prior to signing*
--- NOTE | 2021-03-23 11:54 | CASEMGMT ---
Social Work Labor and Delivery Notified Melanie Perez at the [facility] Child Abuse hotline ([phone]) of meconium drug screen results. Refer to baby's chart for fursthe details. Melanie will give information to the assigned drag out worker. No other services requested or indicated. -ISIS Watkins, TABLET TECHNICIAN
== END 2021-03-10 18:12 | disposition home or self-care (01) | DRG 540 ==
PROVIDERS: Admitting Provider Obstetrics & Gynecology; Visit Provider Obstetrics & Gynecology
PROC: 10D00Z1 Extraction of Products of Conception, Low, Open Approach (ICD-10-PCS; CPT 59514; principal; 2021-03-06 11:45)
DX: O65.5 Obstructed labor due to abnormality of maternal pelvic organs (principal); O34.211 Maternal care for low transverse scar from previous cesarean delivery; Z3A.39 39 weeks gestation of pregnancy; Z37.0 Single live birth; F32.9 Major depressive disorder, single episode, unspecified; F15.10 Other stimulant abuse, uncomplicated; F14.10 Cocaine abuse, uncomplicated; O99.334 Smoking (tobacco) complicating childbirth; F17.200 Nicotine dependence, unspecified, uncomplicated; O99.324 Drug use complicating childbirth; O99.344 Other mental disorders complicating childbirth
CPT/HCPCS: 80076; 80307; 85025; 85027; 86850; 86900; 86901; 99218; J7120; A4216; G0378; J2405